=== PATIENT | female | born 1980 | race Caucasian/White ===

== ENCOUNTER 2019-01-24 14:56 | Emergency (ER) | payer OTHER ==
[~2019-01-24] VITALS: Ht 165.1 cm; Wt 54.4 kg
[~2019-01-24 14:56] MED LIST: HYDR-4354 PO; IBUP-1955 PO; SUMA100T PO
--- NOTE | 2019-01-24 15:01 | NUR ---
CAME IN FOR WORSENING SHORTNESS OF BREATH, HHN NOT HELPING. ON ATB SINCE 01/19 'FOR AN INFECTION". TO ER BED 3, HOOKED TO MONITOR, PROVIDED W WARM BLANKET, AWAITING MD AGUIRRE.
--- NOTE | 2019-01-24 15:02 | NUR ---
DR VELASQUEZ AT BEDSIDE
[2019-01-24] MEDS ORDERED: IPRATROPIUM NEB FS 0.5 MG/2.5 ML AMPUL.NEB ONE (15:11)
[2019-01-24] MEDS ORDERED: ALBUTEROL FS 2.5 MG/3 ML VIAL.NEB ONE (15:11)
[2019-01-24] MEDS ORDERED: predniSONE 20 MG TABLET ONE (15:12)
--- NOTE | 2019-01-24 15:15 | NUR ---
RT AT BEDSIDE. PT STARTED W BREATHING TX
[2019-01-24] MEDS ORDERED: predniSONE 20 MG TABLET PO ONE (15:30)
[2019-01-24] MEDS ORDERED: ALBUTEROL FS 2.5 MG/3 ML VIAL.NEB CONTNEB ONE (15:30)
[2019-01-24] MEDS ORDERED: IPRATROPIUM NEB FS 0.5 MG/2.5 ML AMPUL.NEB NEB ONE (15:30)
[2019-01-24 16:54] VITALS: BP 116/68
--- NOTE | 2019-01-24 16:54 | NUR ---
Patient discharged to home in stable condition. Written and verbal after care instructions given. Patient verbalizes understanding of instruction.
== END 2019-01-24 16:55 | disposition home or self-care (01) ==
LOC: ER 14:56
DX: J45.901 Unspecified asthma with (acute) exacerbation (principal); G43.909 Migraine, unspecified, not intractable, without status migrainosus; F41.9 Anxiety disorder, unspecified
CPT/HCPCS: 94644; 99285; J7512

== ENCOUNTER 2024-03-12 20:51 | Emergency (ER) | payer BC, OTHER ==
[~2024-03-12] VITALS: Ht 167.6 cm; Wt 56.2 kg
[2024-03-12] MEDS ORDERED: MORPHINE SULFATE INJ 4 MG/ML DISP.SYRIN ONE (22:19)
[2024-03-12] MEDS ORDERED: ONDANSETRON 4 MG TAB.RAPDIS ONE (22:20)
[2024-03-12] MEDS ORDERED: LIDOCAINE HCL/MPF 1% 30 ML VIAL IJ ONE (22:29)
[2024-03-12] MEDS: MORPHINE SULFATE INJ 2 MG/ML DISP.SYRIN IM ONE (22:31)
[2024-03-12] MEDS ORDERED: WATER FOR INJECTION,STERILE 10 ML ONE (22:31)
[2024-03-12] MEDS: ONDANSETRON 4 MG TAB.RAPDIS SL ONE (22:31)
[2024-03-12] MEDS: LIDOCAINE /MPF 1% VIAL 5 ML VIAL IJ ONE (22:43)
[2024-03-12] MEDS: RABIES IMMUNE GLOBULIN/PF 150 UNIT/ML VIAL IM ONE (23:09)
[2024-03-12] MEDS ORDERED: CEPH500C2 PO (23:11)
[2024-03-12] MEDS ORDERED: TDAP [DIPH/PERTUSSIS/TET] 0.5 ML VIAL IM ONE (23:11)
[2024-03-12] MEDS: TDAP [DIPH/PERTUSSIS/TET] 0.5 ML VIAL IM ONE (23:14)
[2024-03-13 00:54] VITALS: BP 133/94; O2SAT 98
== END 2024-03-13 | disposition home or self-care (01) ==
LOC: ER 20:53
DX: S41.111A Laceration without foreign body of right upper arm, initial encounter (principal); G43.909 Migraine, unspecified, not intractable, without status migrainosus; J45.909 Unspecified asthma, uncomplicated; Z79.899 Other long term (current) drug therapy; W54.0XXA Bitten by dog, initial encounter; Y93.89 Activity, other specified; Y92.89 Other specified places as the place of occurrence of the external cause; Y99.8 Other external cause status
CPT/HCPCS: 12002; 90375; 90471; 90715; 96372; 99284; A6403; J2270; J3490; Q0162